=== PATIENT | female | born 1965 | race Two or more races ===

== ENCOUNTER 2025-02-26 17:49 | Emergency (ER) | payer MEDICAID, OTHER ==
[~2025-02-26] VITALS: Ht 175.3 cm; Wt 70.0 kg
[2025-02-26] MEDS ORDERED: DIPH25CA66 PO (18:32)
[2025-02-26] MEDS ORDERED: HYD1TP PR (18:32)
[2025-02-26] MEDS ORDERED: PRED20TA2 PO (18:32)
[2025-02-26] MEDS ORDERED: FAMO20TA10 PO (18:32)
--- NOTE | 2025-02-26 18:34 | ED.PDOC ---
HPI Allergic reaction HPI Comments 60 year old female with a Hx of HTN, Anxiety, and IVS presents to the ED for the c/c of a Diffuse Full Body Rash w/ associated Itchiness, and Burning Sensation. Pt states that her symptoms started 1x month ago and states that she has taken Benadryl with no alleviation at this time. Pt does not the she visited an Urgent Care a few weeks ago and was prescribed Steroids, and notes of an alleviation upon taking the prescribed steroids. Pt notes the Itchiness returned once the steroids ran out. Pt denies eating anything out of the ordinary or any other associated symptoms or modifiers at this time. Chief Complaint: Rash Time Seen by MD: 18:28 Primary Care Provider: amina Reviewed Notes: Nurses Notes, Medications, Allergies Allergies: Coded Allergies: NO KNOWN ALLERGIES (Unverified , 02/26/25) Home Meds Active Scripts Hydrocortone (Hydrocortisone 1%) 1 Applic Ap, 1 APPLIC UT Q6HP PRN, #30 GRAMS Prov:ABI BYRD MD 02/26/25 Diphenhydramine Hcl (Benadryl Allergy) 25 Mg Cap, 1 CAP PO Q6HP PRN, #30 CAP 1 Refill Prov:ABI BYRD MD 02/26/25 Famotidine (PEPCID TABLET) 20 Mg Tb, 1 TAB PO BID PRN, #60 TAB 5 Refills Prov:ABI BYRD MD 02/26/25 Prednisone (Prednisone) 20 Mg Tab, 20 MG PO BID for 5 Days, #10 TAB Prov:ABI BYRD MD 02/26/25 Information Source: Patient Mode of Arrival: Ambulatory Severity: Mild Rash: Mild SOB: None Difficulty swallowing: None Pruritus: None Timing: Months Duration: Intermittent Prehospital treatment: None Location: Abdomen, Arm, Back, Chest, Extremities, Face, Hand Exposed to: Unknown Developed: Rash History of: None Modyifying Factors: None Associated Sign and Symptoms: None Past Medical History PAST MEDICAL HISTORY: Anxiety, Depression, HTN Surgical History: Denies all surgeries Family History Family History: No family hx of HTN, Unknown Social History Smoker: Non-Smoker Alcohol: Denies ETOH Use Drugs: Denies Drug Use Lives In: Home Constitutional: denies: chills, diaphoresis, fatigue, fever, malaise, sweats, weakness, others EENTM: denies: blurred vision, double vision, ear bleeding, ear discharge, ear drainage, ear pain, ear ringing, eye pain, eye redness, hearing loss, mouth pain, mouth swelling, nasal discharge, nose bleeding, nose congestion, nose pain, photophobia, tearing, throat pain, throat swelling, voice changes, others Respiratory: denies: cough, hemoptysis, orthopnea, SOB at rest, shortness of breath, SOB with excertion, stridor, wheezing, others Cardiovascular: denies: chest pain, dizzy spells, diaphoresis, Dyspnea on exertion, edema, irregular heart beat, left arm pain, lightheadedness, palpitations, PND, syncope, others Gastrointestinal: denies: abdomen distended, abdominal pain, blood streaked bowels, constipated, diarrhea, dysphagia, difficulty swallowing, hematemesis, melena, nausea, poor appetite, poor fluid intake, rectal bleeding, rectal pain, vomiting, others Genitourinary: denies: abnormal vagina bleeding, burning, dyspareunia, dysuria, flank pain, frequency, hematuria, incontinence, pain, , vagina discharge, urgency, others Neurological: denies: dizziness, fainting, headache, left sided numbness, left sided weakness, numbness, paresthesia, pre-existing deficit, right sided numbness, right sided weakness, seizure, speech problems, tingling, tremors, weakness, others Musculoskeletal: denies: back pain, gout, joint pain, joint swelling, muscle pain, muscle stiffness, neck pain, others Integumetry: reports: rash; denies: bruises, change in color, change in hair/nails, dryness, laceration, lesions, lumps, wounds, others Allergic/Immunocompromised: denies: Difficulty Healing, Frequent Infections, Hives, Itching, others Hematologic/Lymphatic: denies: anemia, blood clots, easy bleeding, easy bruising, swollen glands, others Endocrine: denies: excessive hunger, excessive sweating, excessive thirst, excessive urination, flushing, intolerance to cold, intolerance to heat, unexplained weight gain, unexplained weight loss, others Psychiatric: denies: anxiety, bipolar disorder, depression, hopeless, panic disorder, schizophrenia, sleepless, suicidal, others All Other Systems: Reviewed and Negative Physical Exam General Appearance: Mild Distress, Normal HEENT: Normal ENT Inspection, Pharynx Normal, TMs Normal, Other ([place] Midline, No starwberry red tongue, no Kolpic spots, and swelling, or orpharynx erythema) Neck: Full Range of Motion, Non-Tender, Normal, Normal Inspection Respiratory: Chest Non-Tender, Lungs Clear, No Accessory Muscle Use, No Respiratory Distress, Normal Breath Sounds Cardiovascular: No Edema, No JVD, No Murmur, No Gallop, Normal Peripheral Pulses, Regular Rate/Rhythm Breast Exam: Deferred Gastrointestinal: No Organomegaly, Non Tender, No Pulsatile Mass, Normal Bowel Sounds, Soft Genitalia: Deferred Pelvic: Deferred Rectal: Deferred Extremities: No calf tenderness, Normal capillary refill, Normal inspection, Normal range of motion, Non-tender, No pedal edema Musculoskeletal : Apperance: Normal Neurologic: Alert, crime prevention police officer II-XII nml as Tested, No Motor Deficits, Normal Affect, Normal Mood, No Sensory Deficits Cerebellar Function: Normal Reflexes: Normal Skin: Dry, Normal Color, Rash Lymphatic: No Adenopathy Was a procedure done? Was a procedure done?: No Differential diagnosis (all) Differential Diagnosis: Drug Reaction X-Ray, Labs, Meds, VS Vital Signs Date Time Temp Pulse Resp B/P (MAP) Pulse Ox O2 Delivery O2 Flow Rate FiO2 02/26/25 18:52 83 18 96 Room Air 02/26/25 18:52 98.3 83 18 157/96 (116) 96 98.3 02/26/25 17:51 98.3 87 16 175/129 99 98.3 Current Medications Medications (Trade) Dose Ordered Sig/Sam Route Start Time Stop Time Status Last Admin Prednisone 40 mg ONCE ONCE PO 02/26/25 18:30 02/26/25 18:31 DC 02/26/25 18:47 Diphenhydramine HCl (Benadryl Capsule) 25 mg ONCE ONCE PO 02/26/25 18:30 02/26/25 18:31 DC 02/26/25 18:47 Famotidine (Pepcid Tablet) 40 mg ONCE ONCE PO 02/26/25 18:30 02/26/25 18:31 DC 02/26/25 18:46 Time of 1ST Reevaluation: 18:59 Reevaluation 1ST: Unchanged Patient Education/Counseling: Diagnosis, Treatment, Need For Follow Up Family Education/Counseling: No Family Present SEPSIS Sepsis Screen Date sepsis recognized/suspect: Feb 26, 2025 Time Sepsis recognized/suspect: 1752 Recent Procedure: No On Antibiotic Therapy: No Respiratory Rate >20: No Heart Rate >90: No Temp<36 C (96.8 F) or >38.3 C: No SBP <90 or MAP <65 mmHG: No New Acute Mental Status Change: No Is the patient on CPAP, BIPAP,: No Vital Signs Date Time Temp Pulse Resp B/P (MAP) Pulse Ox O2 Delivery O2 Flow Rate FiO2 02/26/25 18:52 83 18 96 Room Air 02/26/25 18:52 98.3 83 18 157/96 (116) 96 98.3 02/26/25 17:51 98.3 87 16 175/129 99 98.3 Medications Medications Dose Ordered Sig/Sam Route Start Time Stop Time Status Last Admin Dose Admin Diphenhydramine HCl 25 mg ONCE ONCE PO 02/26/25 18:30 02/26/25 18:31 DC 02/26/25 18:47 Famotidine 40 mg ONCE ONCE PO 02/26/25 18:30 02/26/25 18:31 DC 02/26/25 18:46 Prednisone 40 mg ONCE ONCE PO 02/26/25 18:30 02/26/25 18:31 DC 02/26/25 18:47 Departure 1 Departure Time of Disposition: 20:00 Impression: Primary Impression: Urticaria Disposition: 01 HOME / SELF CARE / HOMELESS Condition: Stable e-Prescriptions Hydrocortone (Hydrocortisone 1%) 1 Applic Ap 1 APPLIC UT Q6HP PRN, #30 GRAMS Prov: ABI BYRD MD 02/26/25 Diphenhydramine Hcl (Benadryl Allergy) 25 Mg Cap 1 CAP PO Q6HP PRN, #30 CAP 1 Refill Prov: ABI BYRD MD 02/26/25 Famotidine (PEPCID TABLET) 20 Mg Tb 1 TAB PO BID PRN, #60 TAB 5 Refills Prov: ABI BYRD MD 02/26/25 Prednisone (Prednisone) 20 Mg Tab 20 MG PO BID for 5 Days, #10 TAB Prov: ABI BYRD MD 02/26/25 Discharged With: Self Critical Care Note Critical Care Time?: No Stability Stability form required: No Heart Score Heart Score: Heart Score Response (Comments) Value History N/A 0 EKG N/A 0 Age N/A 0 Risk Factors N/A 0 Troponin N/A 0 Total 0 I personally scribed for ABI BYRD MD ([email or web address]) on 02/26/25 at 18:34. El ectronically submitted by Sukhi Oleary ([email or web address]). ABI BYRD MD Feb 26, 2025 18:34
[2025-02-26] MEDS: FAMOTIDINE 20 MG TAB PO ONE (18:46)
[2025-02-26] MEDS: diphenhdrAMINE HCL 25 MG CAP PO ONE (18:47)
[2025-02-26] MEDS: predniSONE 20 MG TAB PO ONE (18:47)
[2025-02-26 18:52] VITALS: BP 157/96; PULSE 83; RESP 18; TEMP 98.3; O2SAT 96
== END 2025-02-26 19:09 | disposition home or self-care (01) ==
LOC: ER 17:49
DX: L50.9 Urticaria, unspecified (principal); I10 Essential (primary) hypertension; F41.9 Anxiety disorder, unspecified; F32.A Depression, unspecified; Z79.899 Other long term (current) drug therapy
CPT/HCPCS: 99284; J7512